=== PATIENT | male | born 1985 | race Two or more races ===

== ENCOUNTER 2021-08-18 09:20 | Emergency (ER) | payer OTHER ==
[~2021-08-18] VITALS: Ht 177.8 cm; Wt 88.5 kg
[2021-08-18] MEDS ORDERED: ZESTRIL10 M1 PO (09:25)
[2021-08-18] MEDS ORDERED: ZITHROMAX500 MG PO (12:31)
== END 2021-08-18 12:37 | disposition home or self-care (01) ==
LOC: ER 09:20
DX: B34.9 Viral infection, unspecified (principal); Z20.822 Contact with and (suspected) exposure to COVID-19

== ENCOUNTER 2021-09-01 08:00 | Outpatient (CLI) | payer OTHER ==
[~2021-09-01 08:00] MED LIST: ZESTRIL10 M1 PO; ZITHROMAX500 MG PO
== END 2021-09-01 08:30 | disposition home or self-care (01) ==
LOC: PPH VACUNA 08:00
PROVIDERS: ATTEND Emergency Medicine Pediatric Emergency Medicine
DX: Z23 Encounter for immunization (principal)
CPT/HCPCS: 90686; G0008